=== PATIENT | male | born 1975 ===

== ENCOUNTER 2017-02-02 17:57 | Inpatient (IN) | payer MEDICAID, OTHER ==
[2017-02-02] MEDS ORDERED: MAG HYDROX/AL HYDROX/SIMETH 30 ML CUP PO PRN (18:22)
[2017-02-02] MEDS ORDERED: MAGNESIUM HYDROXIDE 2,400 MG/10 ML CUP PO PRN (18:22)
[2017-02-02] MEDS ORDERED: ZIPRASIDONE 20 MG VIAL IM PRN (18:22)
[2017-02-02] MEDS ORDERED: LORazepam 1 MG TAB PO PRN (18:28)
[2017-02-02] MEDS ORDERED: BUPRENORPHINE HCL SL SCH (21:00)
[2017-02-02] MEDS ORDERED: NALOXONE HCL SL SCH (21:00)
[2017-02-02] MEDS ORDERED: QUEtiapine 100 MG TAB PO SCH (21:00)
[2017-02-02] MEDS: SUBOXONE 8 MG/2 MG PO SCH (21:55)
[2017-02-02] MEDS: CYCLOBENZAPRINE 10 MG TAB PO PRN (21:57)
[2017-02-02 22:33] VITALS: BMI 39.1
[2017-02-03] MEDS: NICOTINE 14MG/24HR PATCH TRANSDERM SCH (08:47)
[2017-02-03] MEDS: LORazepam 1 MG TAB PO PRN ×2 (08:48→17:11)
[2017-02-03] MEDS ORDERED: VENLAFAXINE HCL 75 MG TAB PO SCH (09:00)
[2017-02-03] MEDS ORDERED: VENLAFAXINE HCL ER 75 MG CAP PO SCH (09:00)
[2017-02-03] MEDS: SUBOXONE 8 MG/2 MG PO SCH ×2 (09:13→15:01)
[2017-02-03] MEDS: CYCLOBENZAPRINE 10 MG TAB PO PRN ×2 (09:23→18:50)
[2017-02-03 11:40] LABS: ALT 27 U/L (21-72); AST 21 U/L (17-59); Alkaline Phosphatase 62 U/L (38-126); Anion Gap 7 mmol/L; Blood Urea Nitrogen 11 mg/dL (9-20); Calcium 9.6 mg/dL (8.4-10.2); Carbon Dioxide 30 mmol/L (22-30); Chloride 103 mmol/L (98-107); Glucose 84 mg/dL (74-99); Non-African American GFR(MDRD) >60 (>60 ml/min/1.73 sqM); Potassium 4.2 mmol/L (3.5-5.1); Sodium 140 mmol/L (137-145); Total Bilirubin 0.7 mg/dL (0.2-1.3); Total Protein 7.7 g/dL (6.3-8.2)
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
--- NOTE | 2017-02-03 12:37 | HP ---
DATE OF ADMISSION: CHIEF COMPLAINT: Depression. HISTORY OF PRESENT ILLNESS: This is a 41-year-old male who presented to the psych floor with bipolar and depression. Patient reported that he accidentally landed on a razor blade, with an incision to his left lower quadrant area. Steri-Strips were placed and currently there is serosanguineous drainage. Patient denied fever, chills, nausea, vomiting, abdominal pain, dizziness, lightheadedness or blurry vision. Said that he had a bowel movement this morning and it was normal. REVIEW OF SYSTEMS: All 14 systems reviewed and negative except as above. ALLERGIES: 1. DEMEROL. 2. BACTRIM. 3. ULTRAM. PAST MEDICAL AND SURGICAL HISTORY: 1. Chronic back pain. 2. Insomnia. 3. Depression. 4. Bipolar. 5. Hypertension. 6. Hyperlipidemia. 7. Hernia repair x2 bilaterally. 8. Discectomy. 9. Appendectomy. 10. Hydrocele cord surgery. MEDICATIONS: 1. Suboxone for the last 2 years. 2. Flexeril. 3. Seroquel. 4. Ativan. 5. Aspirin. Patient said that he was prescribed Tenormin, and that he quit taking it almost a year ago. Patient said that he is prescribed cholesterol medicine that he has not been taking. SOCIAL HISTORY: Patient smokes half a pack per day. Denied alcohol abuse. Said that he used to be addicted to his prescription pain pills and has been on Suboxone for 2 years. FAMILY HISTORY: Reviewed and negative. PHYSICAL EXAMINATION: VITAL SIGNS: Temperature 97.0, heart rate of 77, respiratory rate 12, blood pressure 112/69, saturation 95% on room air. GENERAL: Appears his stated age. No acute distress. HEENT: Atraumatic, normocephalic. PERRLA. NECK: Supple. No masses. No thyromegaly. ABDOMEN: Soft. Positive bowel sounds in all 4 quadrants. No guarding or rebound. Left lower quadrant 2 cm incision with serosanguineous drainage and Steri-Strips in place covered with gauze. LOWER EXTREMITIES: No edema. PSYCH: Alert and oriented x3. Relaxed mood and affect. NEURO: No focal deficits. Cranial nerves II through XII are intact. IMAGING AND LABS: None. ASSESSMENT AND PLAN: 1. Left lower quadrant incision laceration secondary to incidental razor bleed incision, superficial, with serosanguineous drainage. I would like to start patient on doxycycline twice daily. I would like to continue monitoring, apply triple antibiotics twice daily and keep it covered and clean. Discussed with the nursing staff. 2. Hypertension. Blood pressure is currently under control. Will continue monitoring. 3. History of hyperlipidemia, to be followed by his primary care physician. 4. Anxiety, depression per your recommendation. 5. History of polysubstance abuse. Continue Suboxone and job counselor patient regarding that. 6. Tobacco dependency. Will job counselor patient regarding smoking cessation.
[2017-02-03] MEDS: ACETAMINOPHEN TAB 325 MG TAB PO PRN (12:44)
[2017-02-03] MEDS: DOXYCYCLINE 50 MG CAP PO SCH ×2 (13:01→20:36)
[2017-02-03] MEDS: NEOMYCIN-BACITRACIN-POLY OINT 14 GM TUBE TOPICAL SCH ×2 (13:01→22:05)
[2017-02-03] MEDS: QUEtiapine 200 MG TAB PO SCH (20:37)
[2017-02-03] MEDS ORDERED: NON-FORMULARY DRUG PO SCH (21:00)
[2017-02-04] MEDS: ACETAMINOPHEN TAB 325 MG TAB PO PRN (06:21)
[2017-02-04] MEDS: CYCLOBENZAPRINE 10 MG TAB PO PRN ×3 (06:21→21:24)
[2017-02-04] MEDS: LORazepam 1 MG TAB PO PRN ×3 (06:21→21:24)
[2017-02-04] MEDS: SUBOXONE 8 MG/2 MG PO SCH ×2 (08:32→14:23)
[2017-02-04] MEDS: NICOTINE 14MG/24HR PATCH TRANSDERM SCH (08:32)
[2017-02-04] MEDS: NEOMYCIN-BACITRACIN-POLY OINT 14 GM TUBE TOPICAL SCH ×2 (08:33→21:23)
[2017-02-04] MEDS: DOXYCYCLINE 50 MG CAP PO SCH ×2 (08:33→21:22)
--- NOTE | 2017-02-04 11:32 | P.PN ---
Progress Note - Text CLINICAL PROBLEMS: He is a 41-year-old male with a history of a mood disorder, opiate use disorder (on agonist therapy), history of alcohol use disorder and history of benzodiazepine abuse. He presented to the hospital with a suspected self-inflicted laceration to the abdomen. However, he he alleged that the abdominal laceration was accidental and denied that he intentionally cut himself 24 HOUR EVENTS: He slept 6 hours last night. He is posed no management problem and displayed no episodes of behavioral dyscontrol or self-harm. He attended the therapeutic group this morning. EXAMINATION: He complained of nasal congestion, attributed to stopping Effexor and requested to restart the medication. He continues to deny that he intentionally cut himself. He was casually groomed, pleasant and cooperative. He made eye contact and attended to the interview. He had a bright facial expression. He showed no abnormality of psychomotor activity. His speech was spontaneous with normal rate, rhythm and volume. His affect was bright, stable and appropriate. He denied suicidal ideation or wishes. He denied homicidal ideation. He denied depressive cognitions such as hopelessness, helplessness or worthlessness. Express ideas reference, paranoid ideation or delusional thinking. His thinking was concrete but his associations were coherent and logical. He denied hallucinations and did not appear to responding to internal stimuli. PERTINENT DATA: Medical consult appreciated. The toy consultant's diagnoses include left lower quadrant incision/laceration secondary to incidental razor incision, hypertension, history of hyperlipidemia, history of polysubstance abuse and tobacco use disorder. His comprehensive metabolic panel was within normal limits. TSH was normal at 3.120. ASSESSMENT: He continues to deny suicidal ideation or thoughts of self-harm. He is denying depressive symptoms. PLAN: . He was inpatient hospitalization. fellmongery worker to coordinate family meeting. Continue suicide precautions with 15 minute checks. Restart Effexor 75 mg daily. Continue Seroquel 20 mg at bedtime. Continue Suboxone 8/2 mg twice a day for opiate use disorder. Consider discharge on 02/05/2017. Encourage participation in therapeutic groups and activities. Evaluate clinical status response to treatment daily basis.
[2017-02-04] MEDS: VENLAFAXINE HCL ER 75 MG CAP PO SCH (11:57)
[2017-02-04] MEDS: QUEtiapine 200 MG TAB PO SCH (21:22)
[2017-02-05] MEDS: LORazepam 1 MG TAB PO PRN ×3 (08:11→20:09)
[2017-02-05] MEDS: SUBOXONE 8 MG/2 MG PO SCH ×2 (08:21→12:47)
[2017-02-05] MEDS: VENLAFAXINE HCL ER 75 MG CAP PO SCH (08:24)
[2017-02-05] MEDS: DOXYCYCLINE 50 MG CAP PO SCH ×2 (08:24→20:10)
[2017-02-05] MEDS: NICOTINE 14MG/24HR PATCH TRANSDERM SCH (08:24)
[2017-02-05] MEDS: CYCLOBENZAPRINE 10 MG TAB PO PRN ×2 (08:26→16:39)
[2017-02-05] MEDS: NEOMYCIN-BACITRACIN-POLY OINT 14 GM TUBE TOPICAL SCH ×2 (08:27→20:11)
[2017-02-05] MEDS: ACETAMINOPHEN TAB 325 MG TAB PO PRN (09:37)
[2017-02-05 10:51] LABS: Appearance,Urine Clear (Clear); Bilirubin,Urine Negative (Negative); Glucose,Urine (UA) Negative (Negative); Ketones,Urine Negative (Negative); Leukocyte Esterase,Urine Negative (Negative); Nitrite,Urine Negative (Negative); PH, Urine 5.5 (5.0-8.0); Protein,Urine Negative (Negative); Specific Gravity,Urine 1.013 (1.001-1.035); UA Billing (MACRO vs. MICRO) CHEM; Urobilinogen,Urine <2.0 mg/dL (<2.0)
[2017-02-05] MEDS ORDERED: VENLAFAXINE HCL ER 75 MG CAP PO STA (16:06)
--- NOTE | 2017-02-05 16:15 | P.PN ---
Progress Note - Text INTERVERAL HISTORY: Reviewed chart, discussed with treatment team and interviewed patient. Patient was admitted to the mental health unit after spending approximately 1 week in a hospital/medical bed waiting for a psychiatric bed. He reports that he did not stab himself, that it was after trying to repair a door with a razor blade and then tripping and nicking his abdomen. He reports that he takes care of his mother and father, that he has no suicidal ideation, no brothers or sisters that will help take care of his parents. Reports he's had a history of depression, PTSD related to the of his 17- year-old stepson. He does report anxiety. He is taking Effexor 75 mg daily, Seroquel 200 mg at bedtime. Ativan occasionally. Patient denies alcohol or drug use. MENTAL STATUS EXAM: Alert and oriented 3 pleasant and cooperative, dressed in hospital gown. Speech normal volume rate production. Coherent logical goal directed. No GABBIE, no FOI, no ideas of reference. Denies auditory or visual hallucinations. Mood euthymic, affect full range normal intensity. Insight partial, judgment grossly intact for treatment purposes PLAN: Continue inpatient hospitalization, monitor for suicidal ideation, provide suicide precaution checks. Increase venlafaxine/Effexor XR to 150 mg every morning. We'll give a now dose of 75 mg. Continue Seroquel 200 mg at bedtime. Continue Suboxone 8/2 mg twice a day, for opiate use disorder. Family meeting tomorrow arranged. Discharge tomorrow
[2017-02-05] MEDS: QUEtiapine 200 MG TAB PO SCH (20:10)
[2017-02-06 06:54] VITALS: BP 122/73; PULSE 59; RESP 14; TEMP 97.7
[2017-02-06] MEDS: NICOTINE 14MG/24HR PATCH TRANSDERM SCH (08:03)
[2017-02-06] MEDS: SUBOXONE 8 MG/2 MG PO SCH (08:03)
[2017-02-06] MEDS: DOXYCYCLINE 50 MG CAP PO SCH (08:04)
[2017-02-06] MEDS: LORazepam 1 MG TAB PO PRN (08:04)
[2017-02-06] MEDS: CYCLOBENZAPRINE 10 MG TAB PO PRN (08:04)
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
[2017-02-06] MEDS ORDERED: VENLAFAXINE HCL ER 150 MG CAP PO SCH (09:00)
[2017-02-06] MEDS: ACETAMINOPHEN TAB 325 MG TAB PO PRN (09:18)
[2017-02-06] MEDS: NEOMYCIN-BACITRACIN-POLY OINT 14 GM TUBE TOPICAL SCH (10:14)
== END 2017-02-06 10:35 | disposition home or self-care (01) | DRG 881 ==
LOC: 3MHU 20:22
PROVIDERS: ADMIT Psychiatry & Neurology Addiction Medicine; ATTEND Psychiatry & Neurology Addiction Medicine
DX: F32.9 Major depressive disorder, single episode, unspecified (principal); I10 Essential (primary) hypertension; E78.5 Hyperlipidemia, unspecified; G89.29 Other chronic pain; G47.00 Insomnia, unspecified; F17.200 Nicotine dependence, unspecified, uncomplicated; S31.119A Laceration without foreign body of abdominal wall, unspecified quadrant without penetration into peritoneal cavity, initial encounter; X78.8XXA Intentional self-harm by other sharp object, initial encounter; F12.90 Cannabis use, unspecified, uncomplicated; M54.9 Dorsalgia, unspecified; F43.10 Post-traumatic stress disorder, unspecified; H93.19 Tinnitus, unspecified ear; G47.9 Sleep disorder, unspecified; Z87.898 Personal history of other specified conditions; Z79.899 Other long term (current) drug therapy
CPT/HCPCS: 80053; 81003; 84443